=== PATIENT | male | born 1975 | race American Indian/Alaskan Native ===

== ENCOUNTER 2019-03-24 13:30 | Emergency (ER) | payer SELFPAY ==
--- NOTE | 2019-03-24 15:17 | Emergency Department Report ---
ED Rash HPI - HPI Stated Complaint: RASH Time Seen by Provider: 03/24/19 15:12 Rash Symptoms: Yes Itching, No Facial Swelling, No Tongue/Oral Swelling, No Breathing Difficulties, No Choking Sensation, No Wheezing/Dyspnea, No Peeling, No Blistering, No Fever, No Lightheaded, No Malaise, No Myalgias Other History: pt is a 43 yo male who presents with a rash to the left upper extremity and left side of his abdomen that began a week ago. states it started as a mosiquito bite. he says he does have itching. pt states he slept in a different place. pt denies being outside pulling weeds. denies anyone else with the same rash. states used alcohol. no PMHx. allergy percocet-itching. he denies any pain, no fever, no drainage ED Review of Systems ROS: Stated complaint: RASH Other details as noted in HPI Comment: All other systems reviewed and negative ED Past Medical Hx - Medications Home Medications: Home Medications Medication Instructions Recorded Confirmed Last Taken Type Clotrimazole/Betamethasone Dip 5 gm TP BID #1 cream..g. 03/24/19 Unknown Rx [Lotrisone Cream] Rash Exam - Exam General: Vital signs noted. No distress. Alert and acting appropriately. HEENT: No Periorbital Edema, No Conjuctival Injection, No Chemosis, No Perioral Edema, No Tongue Edema, No Uvular Edema, No Compromised Airway, No Drooling Lungs: Yes Good Air Exchange, No Wheezes, No Ronchi, No Stridor, No Cough, No Labored Respirations, No Retractions, No Use of Accessory Muscles, No Other Abnormal Lung Sounds Heart: Yes Regular, No Murmur Skin: Yes Maculopapular Rash (presents to the left forearm and the left side of the abdomen, no drainage, no skin denuding, no blistering, no mucosal involvement, no drainage, no surrounding erythema, not present in the webs of the fingers, no excoriations) ED Medical Decision Making - Medical Decision Making pt is a 43 yo male who presents with a rash to the left upper extremity and left side of his abdomen that began a week ago. states it started as a mosiquito bite. he says he does have itching. pt states he slept in a different place. pt denies being outside pulling weeds. denies anyone else with the same rash. states used alcohol. no PMHx. allergy percocet-itching. he denies any pain, no fever, no drainage. vitals are normal. on exam: presents to the left forearm and the left side of the abdomen, no drainage, no skin denuding, no blistering, no mucosal involvement, no drainage, no surrounding erythema, not present in the webs of the fingers, no excoriations, no TTP over the rash. pt was given lotrisone cream discussed to use as prescribed. may use benadryl over the counter for itching. follow up with a primary care doctor in the next 2-3 days for reevaluation. return to the emergency room for any new or worsening symptoms. please refrain from scratching. - Differential Diagnosis contact derm, irritant derm, allergic rxn, scabies, bed bugs Critical care attestation.: If time is entered above; I have spent that time in minutes in the direct care of this critically ill patient, excluding procedure time. ED Disposition Clinical Impression: Rash Disposition: DC-01 TO HOME OR SELFCARE Is pt being admited?: No Does the pt Need Aspirin: No Condition: Stable Instructions: Acute Rash (ED) Additional Instructions: Please use medication as prescribed. may use benadryl over the counter for itching. follow up with a primary care doctor in the next 2-3 days for reevaluation. return to the emergency room for any new or worsening symptoms. please refrain from scratching. Prescriptions: Clotrimazole/Betamethasone Dip [Lotrisone Cream] 5 gm TP BID #1 cream..g. Referrals: CARLEY DEAN MD [Primary Care Provider] - 2-3 Days [facility] [Outside] - 2-3 Days [facility] [Outside] - 2-3 Days Time of Disposition: 15:14 Print Language: [place]
[2019-03-24 15:19] VITALS: BP 138/75
== END 2019-03-24 17:59 | disposition home or self-care (01) ==
LOC: ED 13:30
DX: R21 Rash and other nonspecific skin eruption (principal); L29.9 Pruritus, unspecified
CPT/HCPCS: 99282